=== PATIENT | male | born 1965 | race Caucasian/White ===

== ENCOUNTER 2023-06-10 13:24 | Outpatient (CLI) | payer OTHER, SELFPAY ==
--- NOTE | ~2023-06-10 | PE_ITS ---
EXAMINATION: PET_PETPSMAST_PT DATE: 06/10/2023 16:09 INDICATION: Prostate cancer TECHNIQUE: 8.11 mCi of pipflufolastat F-18 (18-F-DCFPyL) was administered i.v. Low dose computed papi ography (CT) images were acquired from the base of the brain to the base of the brain to the proximal thighs for attenuation correction and anatomic localization. Positron emission tomography (PET) imag es were acquired in the same distribution beginning 93 minutes after injection. Images including fuse d PET/CT images were reconstructed in axial, coronal, and sagittal planes. Automated exposure control technique was employed. The dose-length product was 1095.78mGy-cm. COMPARISON: None FINDINGS: Head/neck: Typical pattern of symmetric physiologic increased activity in the lacrimal, parotid and submandibula r glands as well as along the mucosa of the nasal and oral cavities, the neptali-, naso- and hypopharynx, the glottis and esophagus. No pathologically enlarged cervical lymphadenopathy or suspicious foci of increased uptake in the visualized head or neck. Chest: Calcified nodules in the superior segment of the left lower lobe and calcified left hilar nodes consi stent with old granulomatous disease. No suspicious pulmonary nodules, pneumonia or pleural effusion. Mild cardiomegaly. Atherosclerotic coronary artery calcific lesion. No pericardial or pleural effusi on. No pathologically enlarged or PSMA avid thoracic lymphadenopathy. Abdomen/pelvis/proximal thighs: Physiologic renal accumulation and excretion of activity in the kidneys, bladder and along portions o f ureters. Normal degree and slightly heterogenous pattern of increased uptake throughout the liver a nd spleen without radiologic correlate or dominant PSMA avid lesion. The gallbladder, pancreas and bi lateral adrenal glands are normal. Moderate uptake scattered throughout the bowels with typical duode nal and proximal jejunal predominance and without radiologic correlate, also likely physiologic. Inde terminate tiny focus of mild increased uptake with maximal SUV of 4.3 in the vicinity of several smal l vessels in the left obturator region potentially associated with a lymph node which is too small to differentiate from the vasculature. Additional mild uptake with maximal SUV of 3.4 associated with a normal sized distal left external iliac chain lymph node. No pathologically enlarged abdominal, pelv ic or inguinal lymphadenopathy. Musculoskeletal: There are few tiny foci of mild uptake in the pelvis at the left lesser trochanter, the most intense at the left lamina at S2 with maximal SUV of 5.0 and which are without evident radiologic correlate w hich are equivocal for very early osseous metastatic disease. Small bone island without evident uptak e at the left sacral ala at S1. IMPRESSION: 1. A couple tiny foci of mild uptake in the left obturator and left external iliac regions and a few tiny foci of mild increased uptake in the pelvic bones and left lesser trochanter multiple which are without radiologic correlate. As seen on the rotating nip images however there is widespread pattern of relatively noisy tiny foci of increased activity likely related to patient body habitus and quantu m mottle. While suspicious, the previously noted lesions in the pelvis are not clearly distinguishabl e from the background noise seen on the rotating MIPS images and remain indeterminate for early metas tatic disease versus artifact. Recommend continued follow-up with PSA levels with repeat PSMA PET zee ging should PSA levels continue to trend upward. Reviewed, dictated and finalized at location B. IMPRESSION: 1. A couple tiny foci of mild uptake in the left obturator and left external il iac regions and a few tiny foci of mild increased uptake in the pelvic bones tresa garcia
== END 2023-06-10 13:25 | disposition home or self-care (01) ==
LOC: ANHIMG 13:32
PROVIDERS: PCP Family Medicine; Visit Provider Radiology Radiation Oncology
DX: C61 Malignant neoplasm of prostate (principal)
CPT/HCPCS: 78815; A9595

== ENCOUNTER 2023-06-17 09:18 | Outpatient (CLI) | payer OTHER, SELFPAY ==
--- NOTE | ~2023-06-17 | MR_ITS ---
EXAMINATION: MR pelvis wo/w con DATE: 06/17/2023 10:23 INDICATION: Prostate cancer TECHNIQUE: Magnetic resonance imaging (MRI) of the pelvis was performed without and with 20 mL Multih ance intravenous contrast. Fullfield sequences of the pelvis included axial and coronal T2-weighted S S FSE, axial, sagittal and coronal 2D FIESTA, axial 2D FIESTA FS, axial SSFSE-IR HORTENCIA, axial dual-echo T1-weighted FSPGR, axial and coronal T1 weighted LAVA, 3D axial T2 Cube, axial diffusion-weighted SE with apparent diffusion coefficient (ADC) maps. Postcontrast sequences included a time course axial T1-weighted LAVA and sagittal and coronal T1-weighted LAVA. COMPARISON: Pet PSMA dated 06/10/2023 FINDINGS: Status post prostatectomy. No evident nodular soft tissue density process may bed to suggest residual /recurrent disease. There is an intact thin fat plane between the rectum and the prostatectomy bed. N o pathologically enlarged pelvic or inguinal lymphadenopathy. Normal sized lymph node measuring 8 mm in maximal short axis diameter along the right external iliac chain and normal sized 4 mm left obtura tor lymph node which correspond to the sides of mild FDG uptake on the prior PET study. Small fat-con taining right inguinal hernia. Visualized portion of the bowels are unremarkable including a normal a ppendix. No free fluid in the pelvis. Normal bone marrow signal throughout with no abnormally enhanci ng bone lesions. IMPRESSION: 1. Status post prostatectomy reportedly for prostate cancer with no evident residual/locally recurren t disease. 2. No pathologically enlarged pelvic or inguinal lymphadenopathy or suspicious bone lesions identifie d to elevate suspicion for metastatic disease. Reviewed, dictated and finalized at location A. IMPRESSION: 1. Status post prostatectomy reportedly for prostate cancer with no evident res idual/locally recurrent disease. 2. No pathologically enlarged pelvic or inguinal lymphadenopathy or suspicious bone lesions identified to elevate suspicion for metastatic disease.
== END 2023-06-17 09:19 | disposition home or self-care (01) ==
PROVIDERS: PCP Family Medicine; Visit Provider Radiology Radiation Oncology
DX: C61 Malignant neoplasm of prostate (principal)
CPT/HCPCS: 72197; A9577

== ENCOUNTER 2024-05-08 11:34 | Outpatient (CLI) | payer OTHER, SELFPAY ==
[2024-05-08 13:01] LABS: Prostate Specific Antigen < 0.1 ng/mL (< OR = 4.0)
[2024-05-11 17:04] LABS: Testosterone Total 6 ng/dL (250-1100)
== END 2024-05-08 11:35 | disposition home or self-care (01) ==
LOC: ANHLAB 11:36
PROVIDERS: PCP Family Medicine; Visit Provider Urology
DX: C61 Malignant neoplasm of prostate (principal)
CPT/HCPCS: 36415; 84153; 84403

== ENCOUNTER 2024-05-08 11:56 | Outpatient (CLI) | payer OTHER, SELFPAY ==
--- NOTE | ~2024-05-08 | DEXA_ITS ---
Bone Density Report Name: ARLEEN JARA Age: 59 Sex: Male Ethnicity: White Date of : 1965 Indication: cancer; Referring Provider: SHASTA FONSECA Study: Bone densitometry was performed. Exam Date: May 08, 2024 Accession number: [id number] Bone Density: Region BMD T-score Z-score Classification AP Spine(L1-L4) 1.160 0.6 1.2 Normal Femoral Neck (Left) 0.945 0.1 1.0 Normal Total Hip (Left) 1.156 0.8 1.2 Normal Femoral Neck (Right) 0.912 -0.1 0.8 Normal Total Hip (Right) 1.058 0.2 0.6 Normal Total Hip Mean 1.107 0.5 0.9 Normal World Health Organization criteria for BMD impression classify patients as: Normal (T-score at or above -1.0), Osteopenia (T-score between -1.0 and -2.5), or Osteoporosis (T-score at or below -2.5). 10-year Fracture Risk: FRAX not reported because: All T-scores for Spine Total, Hip Total, Femoral Neck at or above -1.0 Clinical Information Provided by Patient: Has used the following medications: Vitamin D Has the following medical conditions: Cancer Patient maximum height was 73.0 Drinks caffeinated beverages Impression: The patient has normal bone mass. Discussion: BONE DENSITY IS ABOVE THE MINIMUM DESIRABLE LEVEL AT ALL SKELETAL SITES TESTED. This patient?s bone mineral density is above the minimum desirable level (T-score -1.0 or better) at all sites measured. The patient should follow a healthful lifestyle (good nutrition with adequate calcium and vitamin D, and appropriate weight-bearing exercise). Follow-Up: Consider repeating this study in 5 years or sooner if there is some new clinical indication. Reported by: ROBERTH on 05/08/2024 12:39:00 PM. Reviewed, dictated and finalized at location AChayito ASENCIO
== END 2024-05-08 11:57 | disposition home or self-care (01) ==
PROVIDERS: PCP Family Medicine; Visit Provider Urology
DX: C61 Malignant neoplasm of prostate (principal)
CPT/HCPCS: 36415; 77080; 84153; 84403

== ENCOUNTER 2025-05-17 07:07 | Outpatient (CLI) | payer OTHER, SELFPAY ==
--- NOTE | ~2025-05-17 | DEXA_ITS ---
Bone Density Report Name: ARLEEN JARA Age: 60 Sex: Male Ethnicity: White Date of : 1965 Indication: cancer; Referring Provider: SHASTA FONSECA Study: Bone densitometry was performed. Exam Date: May 17, 2025 Accession number: [id number] Bone Density: Region BMD T-score Z-score Classification AP Spine(L1-L4) 1.117 0.2 0.8 Normal Femoral Neck (Left) 0.949 0.1 1.1 Normal Total Hip (Left) 1.052 0.1 0.6 Normal Femoral Neck (Right) 0.867 -0.5 0.5 Normal Total Hip (Right) 1.044 0.1 0.5 Normal Total Hip Mean 1.048 0.1 0.6 Normal World Health Organization criteria for BMD impression classify patients as: Normal (T-score at or above -1.0), Osteopenia (T-score between -1.0 and -2.5), or Osteoporosis (T-score at or below -2.5). 10-year Fracture Risk: FRAX not reported because: All T-scores for Spine Total, Hip Total, Femoral Neck at or above -1.0 Clinical Information Provided by Patient: Has used the following medications: Vitamin D, Calcium Has the following medical conditions: Cancer Patient maximum height was 73.0 Drinks caffeinated beverages Impression: The patient has normal bone mass. Discussion: BONE DENSITY IS ABOVE THE MINIMUM DESIRABLE LEVEL AT ALL SKELETAL SITES TESTED. This patient?s bone mineral density is above the minimum desirable level (T-score -1.0 or better) at all sites measured. The patient should follow a healthful lifestyle (good nutrition with adequate calcium and vitamin D, and appropriate weight-bearing exercise). Follow-Up: Consider repeating this study in 5 years or sooner if there is some new clinical indication. Reported by: ROBERTH on 05/17/2025 8:05:00 AM. Reviewed, dictated and finalized at location A.
--- OUTSIDE RECORDS SUMMARY | 2025-05-17 07:18 | XMS_ITS | Clinical Summary ---
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
--- OUTSIDE RECORDS SUMMARY | 2025-05-17 07:18 | XMS_ITS | Encounter Summary ---
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
--- OUTSIDE RECORDS SUMMARY | 2025-05-17 07:18 | XMS_ITS | Clinical Summary ---
Author Organization [facility] Address [facility] [place] [address] Care Team Providers Care Product Marketing Executive Name Role Phone Walt Villasenor MD Primary Care Provider [phone] Allergies No known active allergies Medications atorvastatin (LIPITOR) 5 mg 20 mg daily. 06/15/2022 Active tadalafil (CIALIS) 10 MG tablet Take 10 mg by mouth daily as needed. 03/04/2020 Active Encounters Date Type Department Care Team Description 02/18/2025 10:50 AM CDT - 02/18/2025 11:59 PM CDT Hospital Encounter [facility] [address] [place] [address] Horace See MD Discharge Disposition: Home or Self Care (Routine Discharge) 02/18/2025 Orders Only [facility] [place] [address] Horace See MD 02/18/2025 Travel from Last 3 Months Social History Tobacco Use Types Packs/Day Years Used Date Smoking Tobacco: Never Smokeless Tobacco: Never Alcohol Use Standard Drinks/Week Comments Yes 3.3 (1 standard drink = 0.6 oz p ure alcohol) WEEKENDS Sex and Gender Information Value Date Recorded Sex Assigned at Not on file 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 Gender Identity Not on file Sexual Orientation Not on file Last Filed Vital Signs Vital Sign Reading Time Taken Comments Blood Pressure 125/81 06/22/2022 9:56 AM CDT Pulse 55 06/22/2022 9:56 AM CDT Temperature 36.2 C (97.1 F) 06/22/2022 9:56 AM CDT Respiratory Rate 16 06/22/2022 9:56 AM CDT Oxygen Saturation 97% 06/22/2022 9:56 AM CDT Inhaled Oxygen Concentration - - Weight 124.7 kg (275 lb) 06/15/2022 10:29 AM CDT Height 185.4 cm (6' 1) 06/15/2022 10:29 AM CDT Body Mass Index 36.28 06/15/2022 10:29 AM CDT Plan of Treatment Health Maintenance Due Date Last Done Comments Annual Physical 1969 Hepatitis C 02/16/1984 DTaP, Tdap and Td Vaccines ( 1 - Tdap) 1985 Pneumococcal Vaccine: 50+ Years (1 of 1 - PCV) 02/16/2016 Zoster Vaccines (1 of 2) 02/16/2016 COVID-19 Vaccine (1 - 2023-2 5 season) 2024 Colorectal Cancer Screening Colonoscopy (10 Years) 06/22/2032 06/22/2022, 06/22/2022 Meningococcal B Vaccine Aged Out No l onger eligible based on patient's age to complete this topic Meningococcal Vaccine Aged Out No dina canelo eligible based on patient's age to complete this topic RSV Immunizations Under 20 Months Aged Out No longer eligible b ased on patient's age to complete this topic Procedures Procedure Name Priority Date/Time Associated Diagnosis Comments PROSTATE SPECIFIC ANTIGEN,TOTAL Routine 02/18/2025 11:11 AM CDT Malignant neoplasm of prostate ([facility]) TESTOSTERONE, TOTAL Routine 02/18/2025 1 1:11 AM CDT Malignant neoplasm of prostate ([facility]) COLONOSCOPY 06/22/2022 6:46 AM CDT from Last 3 Months or Most Recently Relevant to Health Maintenance Results * PROSTATE SPECIFIC ANTIGEN, DIAG (02/18/2025 11:11 AM CDT) PSA <0.13 <4.00 NG/ML 02/18/2025 11:43 AM CDT [facility] 02/18/2025 11:1 1 AM CDT Horace See MD LABORATORY Final Result Performing Organization Address City/[facility]/ZIP Co de Phone Number [facility] [address] [place] [address], * (ABNORMAL) TESTOSTERONE, TOTAL (02/18/2025 11:11 AM CDT) TESTOSTERONE TOTAL 6(L) 250 - 1,100 ng/dL 02/21/2025 2:19 PM CDT [facility] ADRIANA FREEMAN Comment: For additional information, please refer to http://education.Animail/faq/ [email or web address] (This link is being provided for informational/ educational purposes only.) This test was developed and its analytical performance characteristics have been determined by [employer] [place], [place]. It has not been cleared or approved by the U.S. Food and Drug Administration. This assay has been validated pursuant to the CLIA regulations and is used for clinical purposes. Test Performed by [facility], [employer] [place], [address] [place] [address] Hernandez Calderon M.D., Ph.D., Director of Laboratories , CLIA [id number] 02/18/2025 11:1 1 AM CDT Horace See MD LABORATORY Final Result Performing Organization Address City/[facility]/ZIP Co de Phone Number [facility] [address] [place] [address], [place] [phone] * Colonoscopy (06/22/2022 6:46 AM CDT) Chaim Martinez MD GI PROCEDURE ORDERABLES Final Result from Last 3 Months or Most Recently Relevant to Health Maintenance Insurance [employer] Care Teams Product Marketing Executive Relationship Specialty Start Date End Date Walt Villasenor MD [address] [place] [phone] PCP - General FAMILY PRACTICE 12/25/19
== END 2025-05-17 07:08 | disposition home or self-care (01) ==
PROVIDERS: PCP Family Medicine; Visit Provider Urology
DX: Z51.81 Encounter for therapeutic drug level monitoring (principal); Z79.52 Long term (current) use of systemic steroids
CPT/HCPCS: 77080